=== PATIENT | male | born 1950 | race Caucasian/White ===

== ENCOUNTER 2018-08-12 08:56 | Day surgery (SDC) | payer MEDICARE, BC ==
[~2018-08-12] VITALS: Ht 180.3 cm; Wt 147.4 kg
[~2018-08-12 08:56] MED LIST: ALTOPREV20 MG PO; AMLODIPINE5 MG PO; FENOFIBRATE145 MG PO; FLONASE SE27.5 MCG/S; LISINOPRIL20 MG PO; MICROZIDE12.5 MG PO; RANITIDINE150 M1 PO
[2018-08-12 11:15] VITALS: BP 97/50
== END 2018-08-12 11:30 | disposition home or self-care (01) ==
LOC: ENDO 08:56 → ORM 09:15 → PO 09:15 → ENDO 09:15
PROVIDERS: ATTEND Internal Medicine Gastroenterology
PROC: 0DBN8ZX Excision of Sigmoid Colon, Via Natural or Artificial Opening Endoscopic, Diagnostic (ICD-10-PCS; principal; 2018-08-12)
PROC: 0DBL8ZX Excision of Transverse Colon, Via Natural or Artificial Opening Endoscopic, Diagnostic (ICD-10-PCS; 2018-08-12)
DX: K57.31 Diverticulosis of large intestine without perforation or abscess with bleeding (principal); D12.5 Benign neoplasm of sigmoid colon; D12.3 Benign neoplasm of transverse colon; K64.8 Other hemorrhoids; K64.4 Residual hemorrhoidal skin tags; K21.9 Gastro-esophageal reflux disease without esophagitis; I10 Essential (primary) hypertension; G47.30 Sleep apnea, unspecified; E78.00 Pure hypercholesterolemia, unspecified; Z80.0 Family history of malignant neoplasm of digestive organs; Z85.828 Personal history of other malignant neoplasm of skin; Z79.899 Other long term (current) drug therapy

== ENCOUNTER 2022-03-07 09:25 | Emergency (ER) | payer MEDICARE, BC ==
[~2022-03-07] VITALS: Ht 180.3 cm; Wt 151.0 kg
[2022-03-07 10:20] LABS: HEMOGLOBIN 15.2 g/dl (14.0-18.0); IMMATURE GRANULOCYTES 0.4 % (0.0-5.0); MEAN CELL VOLUME 92.7 fL CALC (80.0-100.0); MEAN CORPUSCULAR HGB CONC 32.3 g/dL CAL (32.0-36.0); NEUT# 4.92 thou/uL (1.82-7.42); RED BLOOD COUNT 5.07 mill/uL (4.70-6.10); RED CELL DISTRI WIDTH 13.2 % (11.5-15.5)
[2022-03-07 10:27] LABS: ALBUMIN 4.2 g/dL (3.2-5.0); ALKALINE PHOSPHATASE 44 u/l (38-126); BILIRUBIN, TOTAL 0.4 mg/dL (0.0-1.4); BUN 16 mg/dL (8-23); BUN/CREATININE RATIO 17 (12-20 (CALC)); CHLORIDE 109 mmol/l (95-108); CREATININE 0.9 mg/dL (0.7-1.3); GFR > 60 ML/MIN (>=60 (CALC)); GFR FOR AFR.AMER. > 60 ML/MIN (>=60 (CALC)); SGOT/AST 24 u/l (19-48); SODIUM 141 mmol/l (137-146); TOTAL PROTEIN 7.2 g/dL (6.3-8.2)
[2022-03-07 10:38] LABS: ANION GAP 13 (6-22 (CALC)); CARBON DIOXIDE 23 mmol/l (22-30); POTASSIUM 3.5 mmol/l (3.5-5.1)
[2022-03-07] MEDS ORDERED: ZOFRAN4 MG/TAB PO (11:26)
[2022-03-07] MEDS ORDERED: MECLIZINE25 MG PO (11:30)
[2022-03-07 11:31] VITALS: BP 167/68
== END 2022-03-07 11:45 | disposition home or self-care (01) ==
LOC: ED 09:25
PROVIDERS: Family Medicine
DX: H81.11 Benign paroxysmal vertigo, right ear (principal); I10 Essential (primary) hypertension; E66.9 Obesity, unspecified

== ENCOUNTER 2023-08-10 09:04 | Day surgery (SDC) | payer MEDICARE, BC ==
[~2023-08-10] VITALS: Ht 180.3 cm; Wt 147.4 kg
[~2023-08-10 09:04] MED LIST changes: +AMLODIPINE BESY10 MG PO; +LISINOPRIL40 MG PO; +MECLIZINE25 MG PO; +ZOFRAN4 MG/TAB PO
[2023-08-10 11:36] VITALS: BP 125/64
== END 2023-08-10 11:35 | disposition home or self-care (01) ==
LOC: ENDO 09:04 → ORM 11:45 → ENDO 11:45
PROVIDERS: ATTEND Surgery
PROC: 0DJD8ZZ Inspection of Lower Intestinal Tract, Via Natural or Artificial Opening Endoscopic (ICD-10-PCS; principal; 2023-08-10)
DX: Z12.11 Encounter for screening for malignant neoplasm of colon (principal); K64.8 Other hemorrhoids; I10 Essential (primary) hypertension; E78.5 Hyperlipidemia, unspecified; E66.9 Obesity, unspecified; Z86.010 Personal history of colon polyps